=== PATIENT | female | born 1990 | race Caucasian/White ===

== ENCOUNTER 2018-06-22 11:28 | Emergency (ER) | payer MEDICAID, OTHER ==
[2018-06-22 11:45] VITALS: BP 110/71
--- NOTE | 2018-06-22 12:41 | ED ---
Abdominal Pain/Female - HPI Summary HPI Summary: C/O RIGHT SIDE ABDOMINAL PAIN STARTING THIS AM ASSOCIATED WITH INC BM, NAUSEA, WEAKNESS. PAIN IS CRAMPY, WORSE WITH BM, INTERMITTENT, LASTS 1 MIN AND THEN RETURNS AFTER 5-10 MINS, RATED AT WORST 4/10. DENIES FEVER, DIARRHEA, VOMITING, URINE SX, VAGINAL SX. DENIES FOREIGN TRAVEL. SEXUALLY ACTIVE, ON DEPO-PROVERA. LMP 8/3. MED HX = NONE. ABDO/PEL SURGICAL HX IS NONE. - History of Current Complaint Chief Complaint: UCGI Stated Complaint: DIZZY,BODY ACHES,DIARRHEA Time Seen by Provider: 06/22/18 12:24 Hx Obtained From: Patient Hx Last Menstrual Period: 06/12/18 Onset/Duration: Sudden Onset Timing: Intermittent Episode Lasting Severity Initially: Mild Severity Currently: Mild Pain Intensity: 3 Pain Scale Used: 0-10 Numeric Location: Discrete At: RLQ, Suprapubic Radiates: No Character: Cramping Aggravating Factor(s): Other: Alleviating Factor(s): Nothing Associated Signs and Symptoms: Positive: Nausea Allergies/Adverse Reactions: Allergies Allergy/AdvReac Type Severity Reaction Status Date / Time morphine Allergy heaviness Verified 06/22/18 13:14 feeling in chest Home Medications: Home Medications Medroxyprogesterone Acetate [Depo-Provera Contraceptiv] 150 mg IM SEE INSTRUCTIONS 06/22/18 [History Confirmed 06/22/18] PMH/Surg Hx/FS Hx/Imm Hx Endocrine/Hematology History: Denies: Hx Anticoagulant Therapy, Hx Diabetes, Hx Thyroid Disease Cardiovascular History: Denies: Hx Congestive Heart Failure, Hx Deep Vein Thrombosis, Hx Hypertension , Hx Myocardial Infarction, Hx Pacemaker/ICD Respiratory History: Denies: Hx Asthma, Hx Chronic Obstructive Pulmonary Disease (COPD), Hx Lung Cancer, Hx Pneumonia, Hx Pulmonary Embolism GI History: Denies: Hx Gall Bladder Disease, Hx Gastrointestinal Bleed, Hx Ulcer, Hx Urosepsis History: Denies: Hx Kidney Stones, Hx Renal Disease Neurological History: Denies: Hx Dementia, Hx Migraine, Hx Seizures, Hx Transient Ischemic Attacks (TIA) Psychiatric History: Denies: Hx Anxiety, Hx Depression, Hx Schizophrenia, Hx Bipolar Disorder - Surgical History Surgery Procedure, Year, and Place: pinky laceration Infectious Disease History: No Infectious Disease History: Denies: Hx Clostridium Difficile, Hx Hepatitis, Hx Human Immunodeficiency Virus (HIV), History Other Infectious Disease, Traveled Outside the [place] in Last 30 Days - Family History Known Family History: Positive: None Negative: Cardiac Disease - Social History Alcohol Use: Daily Alcohol Amount: 1-2 glasses wine/day Substance Use Type: Reports: None Smoking Status (MU): Former Smoker Type: Cigarettes Amount Used/How Often: ONCE EVERY 2 WKS Length of Time of Smoking/Using Tobacco: 2 YRS Have You Smoked in the Last Year: Yes Review of Systems Constitutional: Negative Eyes: Negative ENT: Negative Cardiovascular: Negative Respiratory: Negative Positive: Abdominal Pain, Nausea Genitourinary: Negative Musculoskeletal: Negative Skin: Negative Positive: Weakness Psychological: Normal All Other Systems Reviewed And Are Negative: Yes Physical Exam - Summary Physical Exam Summary: + MURPHYS, + RLQ PAIN WITH PALPATION. NON TOXIC APPEARING. Triage Information Reviewed: Yes Vital Signs On Initial Exam: Initial Vitals Temp Pulse Resp BP Pulse Ox 97.6 F 79 15 110/71 99 06/22/18 11:39 06/22/18 11:39 06/22/18 11:39 06/22/18 11:39 06/22/18 11:39 Vital Signs Reviewed: Yes Appearance: Positive: Well-Appearing Skin: Positive: Warm Head/Face: Positive: Normal Head/Face Inspection Eyes: Positive: Normal Neck: Positive: Supple Respiratory/Lung Sounds: Positive: Clear to Auscultation Cardiovascular: Positive: Normal Abdomen Description: Positive: Other: Musculoskeletal: Positive: Normal Neurological: Positive: Normal Psychiatric: Positive: Normal AVPU Assessment: Alert - Jozef Coma Scale Best Eye Response: 4 - Spontaneous Best Motor Response: 6 - Obeys Commands Best Verbal Response: 5 - Oriented Coma Scale Total: 15 Diagnostics - Vital Signs Vital Signs Temp Pulse Resp BP Pulse Ox 06/22/18 11:39 97.6 F 79 15 110/71 99 - Laboratory Lab Statement: Any lab studies that have been ordered have been reviewed, and results considered in the medical decision making process. Abdominal Pain Fem Course/Dx - Course Course Of Treatment: C/O RIGHT SIDE ABDOMINAL PAIN STARTING THIS AM ASSOCIATED WITH INC BM, NAUSEA, WEAKNESS. PAIN IS CRAMPY, WORSE WITH BM, INTERMITTENT, LASTS 1 MIN AND THEN RETURNS AFTER 5-10 MINS, RATED AT WORST 4/10. DENIES FEVER , DIARRHEA, VOMITING, URINE SX, VAGINAL SX. DENIES FOREIGN TRAVEL. SEXUALLY ACTIVE, ON DEPO-PROVERA. LMP 8/3. MED HX = NONE. ABDO/PEL SURGICAL HX IS NONE. PHYSICAL EXAM: + MURPHYS, + RLQ PAIN WITH PALPATION. NON TOXIC APPEARING. pt advised to go to ED for better evaluation of ruq and rlq abdo pain. Pt agrees and will go by private vehicle. VS nml, non toxic appearing. - Diagnoses Provider Diagnoses: Abdominal pain Discharge - Sign-Out/Discharge Documenting (check all that apply): Patient Departure - Discharge Plan Condition: Stable Disposition: HOME-RECOMMEND TO ED Referrals: Jethro Pierre NP [Primary Care Provider] - Additional Instructions: Please go to ED now for better evaluation of your abdominal pain. - Billing Disposition and Condition Condition: STABLE Disposition: Home-Recommend to ED
== END 2018-06-22 12:45 | disposition home health service (06) ==
LOC: UCEAST 11:28
DX: R10.31 Right lower quadrant pain (principal); R11.0 Nausea; R53.1 Weakness; Z88.5 Allergy status to narcotic agent; Z87.891 Personal history of nicotine dependence
CPT/HCPCS: 99212; G0463

== ENCOUNTER 2018-06-22 13:08 | Emergency (ER) | payer MEDICAID, OTHER ==
[2018-06-22 15:09] LABS: ABS Basophils 0 10^3/ul (0-0.2); ABS Eosinophils 0 10^3/ul (0-0.6); ABS Lymphocytes 2.4 10^3/ul (1.0-4.8); ABS Monocytes 0.5 10^3/ul (0-0.8); ABS Neutrophils 3.8 10^3/ul (1.5-7.7); ABS Nucleated RBC 0 10^3/ul; Eosinophil % 0.4 % (0-6); Hematocrit 41 % (35-47); Hemoglobin 13.7 g/dl (12.0-16.0); Lymphocyte % 34.9 % (25-47); Mean Corpuscular HGB Conc 34 g/dl (31-36); Mean Corpuscular Hemoglobin 29 pg (27-31); Mean Corpuscular Volume 86 fL (80-97); Mean Platelet Volume 7.7 um3 (7.4-10.4); Nucleated Red Blood Cells % 0; Platelet Count 259 10^3/ul (150-450); Red Blood Count 4.74 10^6/ul (4.00-5.40); Red Cell Distribution Width 13 % (10.5-15); White Blood Count 6.7 10^3/ul (3.5-10.8)
[2018-06-22 15:28] LABS: EGFR Non-African American 94.9 (>60)
--- NOTE | 2018-06-22 16:30 | ED ---
GI/ HPI - HPI Summary HPI Summary: 28-year-old female presents with abdominal pain since this morning. She states that it is located in her lower abdomen. Also seems to radiate to her right upper quadrant. She states she still hungry. She admits to nausea. No vomiting. No pain with urination. No vaginal discharge. No flank pain. No fevers. No chest pain or shortness breath. Never had this pain before. No previous belly surgeries. She admits to constipation. States she had 4 bowel movements today and that she had some cramping with bowel movements and her pain seemed to get better after the BM. Never had this pain before. - History of Current Complaint Chief Complaint: EDAbdPain Time Seen by Provider: 06/22/18 15:46 Stated Complaint: ABD PAIN Hx Last Menstrual Period: 06/12/18 Pain Intensity: 2 - Allergy/Home Medications Allergies/Adverse Reactions: Allergies Allergy/AdvReac Type Severity Reaction Status Date / Time morphine Allergy heaviness Verified 06/22/18 13:14 feeling in chest PMH/Surg Hx/FS Hx/Imm Hx Endocrine/Hematology History: Denies: Hx Anticoagulant Therapy, Hx Diabetes, Hx Thyroid Disease Cardiovascular History: Denies: Hx Congestive Heart Failure, Hx Deep Vein Thrombosis, Hx Hypertension , Hx Myocardial Infarction, Hx Pacemaker/ICD Respiratory History: Denies: Hx Asthma, Hx Chronic Obstructive Pulmonary Disease (COPD), Hx Lung Cancer, Hx Pneumonia, Hx Pulmonary Embolism GI History: Denies: Hx Gall Bladder Disease, Hx Gastrointestinal Bleed, Hx Ulcer, Hx Urosepsis History: Denies: Hx Kidney Stones, Hx Renal Disease Neurological History: Denies: Hx Dementia, Hx Migraine, Hx Seizures, Hx Transient Ischemic Attacks (TIA) Psychiatric History: Denies: Hx Anxiety, Hx Depression, Hx Schizophrenia, Hx Bipolar Disorder - Surgical History Surgery Procedure, Year, and Place: pinky laceration Infectious Disease History: No Infectious Disease History: Denies: Hx Clostridium Difficile, Hx Hepatitis, Hx Human Immunodeficiency Virus (HIV), History Other Infectious Disease, Traveled Outside the [place] in Last 30 Days - Family History Known Family History: Positive: None Negative: Cardiac Disease - Social History Alcohol Use: Weekly Alcohol Amount: 1-2 glasses wine/day Substance Use Type: Reports: None Smoking Status (MU): Former Smoker Type: Cigarettes Amount Used/How Often: ONCE EVERY 2 WKS Length of Time of Smoking/Using Tobacco: 2 YRS Have You Smoked in the Last Year: Yes Review of Systems Negative: Fever Negative: Chest Pain Negative: Shortness Of Breath Positive: Abdominal Pain, Nausea. Negative: Vomiting, Diarrhea All Other Systems Reviewed And Are Negative: Yes Physical Exam Triage Information Reviewed: Yes Vital Signs On Initial Exam: Initial Vitals Temp Pulse Resp BP Pulse Ox 98.2 F 71 18 124/82 99 06/22/18 13:10 06/22/18 13:10 06/22/18 13:10 06/22/18 13:10 06/22/18 13:10 Vital Signs Reviewed: Yes Appearance: Positive: Well-Appearing Skin: Positive: Warm, Dry Head/Face: Positive: Normal Head/Face Inspection Eyes: Positive: Normal, Conjunctiva Clear ENT: Positive: Pharynx normal Respiratory/Lung Sounds: Positive: Clear to Auscultation, Breath Sounds Present Cardiovascular: Positive: Normal, RRR Abdomen Description: Positive: Other: - tenderness RUQ, RLQ, and LLQ, no rebound Bowel Sounds: Positive: Present Pelvic Exam: Positive: External Exam Normal, Speculum Exam Normal, Bimanual Exam Normal, No Cerv. Motion Tender Musculoskeletal: Positive: Normal Neurological: Positive: Normal Psychiatric: Positive: Normal Diagnostics - Vital Signs Vital Signs Temp Pulse Resp BP Pulse Ox 06/22/18 15:04 97.6 F 65 18 124/78 98 06/22/18 13:10 98.2 F 71 18 124/82 99 - Laboratory Lab Results: Lab Results 06/22/18 06/22/18 Range/Units 15:00 15:00 WBC 6.7 (3.5-10.8) 10^3/ul RBC 4.74 (4.00-5.40) 10^6/ul Hgb 13.7 (12.0-16.0) g/dl Hct 41 (35-47) % MCV 86 (80-97) fL MCH 29 (27-31) pg MCHC 34 (31-36) g/dl RDW 13 (10.5-15) % Plt Count 259 (150-450) 10^3/ul MPV 7.7 (7.4-10.4) um3 Neut % (Auto) 56.5 (38-83) % Lymph % (Auto) 34.9 (25-47) % Becker % (Auto) 7.5 H (0-7) % Eos % (Auto) 0.4 (0-6) % Baso % (Auto) 0.7 (0-2) % Absolute Neuts (auto) 3.8 (1.5-7.7) 10^3/ul Absolute Lymphs (auto) 2.4 (1.0-4.8) 10^3/ul Absolute Monos (auto) 0.5 (0-0.8) 10^3/ul Absolute Eos (auto) 0 (0-0.6) 10^3/ul Absolute Basos (auto) 0 (0-0.2) 10^3/ul Absolute Nucleated RBC 0 10^3/ul Nucleated RBC % 0 Sodium 139 (135-145) mmol/L Potassium 4.1 (3.5-5.0) mmol/L Chloride 107 (101-111) mmol/L Carbon Dioxide 26 (22-32) mmol/L Anion Gap 6 (2-11) mmol/L BUN 12 (6-24) mg/dL Creatinine 0.73 (0.51-0.95) mg/dL Est GFR ( Amer) 114.9 (>60) Est GFR (Non-Af Amer) 94.9 (>60) BUN/Creatinine Ratio 16.4 (8-20) Glucose 89 (70-100) mg/dL Calcium 9.4 (8.6-10.3) mg/dL Total Bilirubin 0.40 (0.2-1.0) mg/dL AST 19 (13-39) U/L ALT 14 (7-52) U/L Alkaline Phosphatase 42 (34-104) U/L C-Reactive Protein < 1.00 (<8.01) mg/L Total Protein 7.8 (6.4-8.9) g/dL Albumin 4.8 (3.2-5.2) g/dL Globulin 3.0 (2-4) g/dL Albumin/Globulin Ratio 1.6 (1-3) Lipase 57 (11.0-82.0) U/L Beta HCG, Quant < 0.60 mIU/mL Result Diagrams: 06/22/18 15:00 06/22/18 15:00 Lab Statement: Any lab studies that have been ordered have been reviewed, and results considered in the medical decision making process. - Ultrasound No standard instances Ultrasound Interpretation: No Acute Changes Ultrasound Interpretation Completed By: Radiologist JENNIFER Course/Dx - Course Course Of Treatment: 28-year-old female presents with abdominal pain since this morning. She states that it is located in her lower abdomen. Also seems to radiate to her right upper quadrant. She states she still hungry. She admits to nausea. No vomiting. No pain with urination. No vaginal discharge. No flank pain. No fevers. No chest pain or shortness breath. Never had this pain before. No previous belly surgeries. She admits to constipation. States she had 4 bowel movements today and that she had some cramping with bowel movements and her pain seemed to get better after the BM. Never had this pain before. on exam has tenderness RUQ, RLQ, and LLQ. no rebound. labs wbc normal. crp normal. gallbladder u/s normal. xray shows constipation. pelvic normal. will treat constipation with miralax. urine normal. patient understand and agrees with plan. - Diagnoses Differential Diagnoses - Female: Cholelithiasis, Constipation, Urinary Tract Infection Provider Diagnoses: Abdominal pain, Constipation Discharge - Sign-Out/Discharge Documenting (check all that apply): Patient Departure - Discharge Plan Condition: Good Disposition: HOME Prescriptions: Polyethylene Glycol 3350* [Miralax*] 17 gm PO DAILY #21 packet Patient Education Materials: Constipation (ED) Referrals: Jethro Pierre NP [Primary Care Provider] - Additional Instructions: take miralax daily Drink plenty of fluids and eat high fiber diet Take tyenlol every 6 hours for pain as needed Follow up with primary Return to ED if develop any new or worsening symptoms - Billing Disposition and Condition Condition: GOOD Disposition: Home
--- NOTE | 2018-06-22 16:32 | RAD ---
INDICATION: Right upper quadrant pain COMPARISON: None TECHNIQUE: Longitudinal and transverse scans of the right upper quadrant were obtained. Doppler interrogation of the hepatic and portal venous system was performed. FINDINGS: Liver: The liver is normal in size and echogenicity. There are no focal masses. The liver measures 14.4 cm in cephalocaudal dimension. Vessels: There is normal hepatic and portal venous flow. Bile ducts: There is no evidence of intrahepatic or extrahepatic ductal dilatation. The common duct measures 0.4 cm. Gallbladder: The sonographic appearance of the gallbladder is normal. There is no evidence of cholelithiasis, thickening of the gallbladder wall, or pericholecystic fluid. Pancreas: The visualized pancreas appears normal Right kidney: The right kidney is normal in size and echogenicity. There are no masses or calculi. There is no evidence of hydronephrosis. The right kidney measures 10.3 x 3.9 x 5.7 cm. IVC and aorta: The aorta and superior vena cava appear normal. Fluid: There is no ascites. Other: None. IMPRESSION: NORMAL STUDY.
--- NOTE | 2018-06-22 16:42 | RAD ---
INDICATION: Constipated COMPARISON: None TECHNIQUE: Erect and supine views of the abdomen are submitted. FINDINGS: Bones: There are no acute bony findings. Soft tissues: The soft tissues appear normal. The psoas margins are sharp. Bowel gas pattern: Normal there is moderate retained stool, however. Calcifications: There are no abnormal calcifications. Other: None IMPRESSION: MODERATE RETAINED STOOL.
[2018-06-22 17:05] LABS: Urine Appearance Cloudy; Urine Blood Negative (Negative); Urine Color Yellow; Urine Ketones Negative (Negative); Urine Protein Negative (Negative); Urine Specific Gravity 1.028 (1.010-1.030); Urine Urobilinogen Negative (Negative)
[2018-06-22 17:21] VITALS: BP 111/75
== END 2018-06-22 17:20 | disposition home or self-care (01) ==
LOC: ED 13:08
DX: K59.00 Constipation, unspecified (principal); R11.0 Nausea; Z87.891 Personal history of nicotine dependence; Z88.5 Allergy status to narcotic agent
CPT/HCPCS: 36415; 74019; 76705; 80053; 81003; 83690; 84702; 85025; 86140; 87480; 87491; 87510; 87591; 87661; 99282

== ENCOUNTER 2019-02-21 17:17 | Emergency (ER) | payer BC, MEDICAID, OTHER ==
[2019-02-21 17:50] VITALS: BP 139/93
--- NOTE | 2019-02-21 18:08 | UC ---
Respiratory Complaint HPI - HPI Summary HPI Summary: 28 yo female presents with sinus pain/pressure/congestion and dry cough for the last 3 days. 3 days ago had some nausea and body aches, but this resolved. Took some ibuprofen for her symptoms with good relief. Denies fever, sore throat, SOB , rash, abdominal pain. - History of Current Complaint Chief Complaint: UCRespiratory Stated Complaint: COLD SYM Hx Obtained From: Patient Hx Last Menstrual Period: [id number] Onset/Duration: Sudden Onset Severity Initially: Mild Severity Currently: Mild Pain Intensity: 3 Pain Scale Used: 0-10 Numeric - Allergies/Home Medications Allergies/Adverse Reactions: Allergies Allergy/AdvReac Type Severity Reaction Status Date / Time morphine Allergy heaviness Verified 02/21/19 17:50 feeling in chest Home Medications: Home Medications Ibuprofen TAB* [Motrin TAB* 600 MG] 600 mg PO Q6H PRN 02/21/19 [History Confirmed 02/21/19] Polyethylene Glycol 3350* [Miralax*] 17 gm PO DAILY PRN 02/21/19 [History] PMH/Surg Hx/FS Hx/Imm Hx Respiratory History: Asthma Other History Of: Negative For: HIV, Hepatitis B, Hepatitis C, Anticoagulant Therapy - Surgical History Surgical History: None Surgery Procedure, Year, and Place: pinky laceration - Family History Known Family History: Positive: None Negative: Cardiac Disease - Social History Occupation: Employed Full-time Lives: With Family Alcohol Use: Daily Alcohol Amount: 1-2 glasses wine/day Substance Use Type: None Smoking Status (MU): Former Smoker Type: Cigarettes Amount Used/How Often: ONCE EVERY 2 WKS Length of Time of Smoking/Using Tobacco: 2 YRS Have You Smoked in the Last Year: Yes When Did the Patient Quit Smoking/Using Tobacco: [id number] Review of Systems All Other Systems Reviewed And Are Negative: Yes Constitutional: Positive: Negative Skin: Positive: Negative Eyes: Positive: Negative ENT: Positive: Ear Ache, Nasal Discharge, Sinus Congestion Respiratory: Positive: Cough Cardiovascular: Positive: Negative Gastrointestinal: Positive: Negative Neurovascular: Positive: Negative Neurological: Positive: Negative Psychological: Positive: Negative Physical Exam - Summary Physical Exam Summary: GENERAL: NAD. WDWN. No pain distress. SKIN: No rashes, sores, lesions, or open wounds. HEENT: Head: AT/NC Eyes: EOM intact. Conjunctiva clear without inflammation or discharge. Ears: Hearing grossly normal. TMs intact, no bulging, erythema, or edema. Nose: Nasal mucosa pink and moist. NTTP maxillary and frontal sinus. Throat: Posterior oropharynx without exudates, erythema, or tonsillar enlargement. Uvula midline. NECK: Supple. Nontender. No lymphadenopathy. CHEST: Mild wheezing throughout. No r/r. No accessory muscle use. Breathing comfortably and in no distress. CV: RRR. Without m/r/g. Pulses intact. Cap refill <2seconds NEURO: Alert. PSYCH: Age appropriate behavior. Triage Information Reviewed: Yes Vital Signs: Initial Vital Signs Temp 97.8 F 02/21/19 17:45 Pulse 76 02/21/19 17:45 Resp 16 02/21/19 17:45 BP 139/93 02/21/19 17:45 Pulse Ox 100 02/21/19 17:45 Vital Signs Reviewed: Yes Respiratory Course/Dx - Course Course Of Treatment: Suspect asthma exacerbation. She has used an inhaler in the past, but not recently. Will rx for an albuterol inhaler and short course of prednisone. Advised to f/u if symptoms do not improve. - Differential Dx/Diagnosis Provider Diagnosis: Asthma exacerbation Discharge - Sign-Out/Discharge Documenting (check all that apply): Patient Departure All imaging exams completed and their final reports reviewed: No Studies - Discharge Plan Condition: Stable Disposition: HOME Prescriptions: Albuterol HFA INHALER* [Ventolin HFA Inhaler*] 1 - 2 puff INH Q6H PRN #1 mdi PRN Reason: Cough predniSONE TAB* [Deltasone 20 MG TAB*] 20 mg PO DAILY #5 tab Patient Education Materials: Acute Bronchitis (ED) Referrals: Jethro Pierre NP [Primary Care Provider] - Additional Instructions: If you develop a fever, shortness of breath, chest pain, new or worsening symptoms - please call your PCP or go to the ED. Your blood pressure was mildly elevated at todays visit. Please see your primary provider within 4 weeks for recheck and re-evaluation. - Billing Disposition and Condition Condition: STABLE Disposition: Home
== END 2019-02-21 18:25 | disposition home or self-care (01) ==
LOC: UCEAST 17:17
DX: J45.901 Unspecified asthma with (acute) exacerbation (principal); Z88.5 Allergy status to narcotic agent; Z87.891 Personal history of nicotine dependence
CPT/HCPCS: 99212; G0463

== ENCOUNTER 2019-07-19 09:17 | Emergency (ER) | payer SELFPAY ==
[2019-07-19 09:24] VITALS: BP 135/73
--- NOTE | 2019-07-19 09:46 | UC ---
Complaint Female HPI - HPI Summary HPI Summary: 29 y/o female presents to the urgent care c/o frequency and burning on urination for the past 4 days. Pt has been drinking water w/o any improvement. This morning she saw pinkish color when she wipe after urination associated w / mild Pt states Hx of UTI in the past. Pt denies fever, flank pain, abdominal pain, vaginal discharge, Hx of STD's, SOB, chest pain,abdominal pain, N/V/D., LMP:06/30/2019 w/ irregular menstrual cycles. - History Of Current Complaint Chief Complaint: UCGU Stated Complaint: BURNING URINATION Time Seen by Provider: 07/19/19 09:33 Hx Obtained From: Patient Hx Last Menstrual Period: 07/03/19 Onset/Duration: Gradual Onset, Lasting Days - 4 days, Still Present, Worse Since - this morning Timing: Lasting Days - 4 days Severity Initially: Mild Severity Currently: Mild Pain Intensity: 3 Pain Scale Used: 0-10 Numeric Character: Burning Aggravating Factor(s): Urination Associated Signs And Symptoms: Positive: Negative. Negative: Fever, Back Pain, Vaginal Discharge, Nausea, Genital Swelling, Genital Blisters Related Hx: Similar Episode/Dx as: - UTI - Risk Factors Ectopic Risk Factor: Negative - Allergies/Home Medications Allergies/Adverse Reactions: Allergies Allergy/AdvReac Type Severity Reaction Status Date / Time morphine Allergy heaviness Verified 07/19/19 09:25 feeling in chest Home Medications: Home Medications Acyclovir* [Zovirax 400 MG TAB*] 1 tab PO BID 07/19/19 [History Confirmed ] Ferrous Sulfate 300 mg PO DAILY 07/19/19 [History Confirmed 07/19/19] PMH/Surg Hx/FS Hx/Imm Hx Previously Healthy: Yes - Pt denies PMHX Other History Of: Negative For: HIV, Hepatitis B, Hepatitis C, Anticoagulant Therapy - Surgical History Surgical History: Yes Surgery Procedure, Year, and Place: pinky laceration - Family History Known Family History: Positive: Cardiac Disease, Hypertension - Social History Occupation: Employed Full-time Lives: With Family Alcohol Use: Daily Alcohol Amount: 1-2 glasses wine/day Substance Use Type: None Smoking Status (MU): Former Smoker Type: Cigarettes Amount Used/How Often: ONCE EVERY 2 WKS Length of Time of Smoking/Using Tobacco: 2 YRS Have You Smoked in the Last Year: Yes When Did the Patient Quit Smoking/Using Tobacco: [id number] Review of Systems All Other Systems Reviewed And Are Negative: Yes Constitutional: Positive: Negative Skin: Positive: Negative Eyes: Positive: Negative ENT: Positive: Negative Respiratory: Positive: Negative Cardiovascular: Positive: Negative Gastrointestinal: Positive: Negative Genitourinary: Positive: Dysuria, Frequency, Urgency, Other - pelvic pressure Motor: Positive: Negative Neurovascular: Positive: Negative Musculoskeletal: Positive: Negative Neurological: Positive: Negative Psychological: Positive: Negative Is Patient Immunocompromised?: No Physical Exam - Summary Physical Exam Summary: VITAL SIGNS: Reviewed. GENERAL: Patient is a well developed and nourished female who is sitting comfortable in the examining table. Patient is not in any acute respiratory distress. HEAD AND FACE: No signs of trauma. No ecchymosis, hematomas or skull depressions. No sinus tenderness. EYES: PERRLA, EOMI x 2, No injected conjunctiva, clear watery eyes, no nystagmus. No photophobia. EARS: Hearing grossly intact. Ear canals and tympanic membranes are within normal limits. MOUTH: pharynx with no erythema, no exudates,no palatal petechiae. no B/L tonsillar enlargement Uvula in midline. NECK: Supple, trachea is midline, no lymphadenopathy, no JVD, no carotid bruit, no c-spine tenderness, neck with full ROM. CHEST: Symmetric, no tenderness at palpation LUNGS: Clear to auscultation bilaterally. No wheezing or crackles. CVS: Regular rate and rhythm, S1 and S2 present, no murmurs or gallops appreciated. ABDOMEN: Soft, non-tender. No signs of distention. No rebound no guarding, and no masses palpated. Bowel sounds are normal. BACK:no scoliosis or lesions, non tender to palpation, No B/L CVA tenderness EXTREMITIES: FROM in all major joints, no edema, no cyanosis or clubbing. NEURO: Alert and oriented x 3. No acute neurological deficits. Speech is normal and follows commands. SKIN: Dry and warm Triage Information Reviewed: Yes Vital Signs: Initial Vital Signs Temp 97.8 F 07/19/19 09:22 Pulse 71 07/19/19 09:22 Resp 15 07/19/19 09:22 BP 135/73 07/19/19 09:22 Pulse Ox 100 07/19/19 09:22 Complaint Female Dx - Course Course Of Treatment: 29 y/o female presents to the urgent care c/o frequency and burning on urination for the past 4 days. Pt has been drinking water w/o any improvement. This morning she saw pinkish color when she wipe after urination associated w / mild Pt states Hx of UTI in the past. Pt denies fever, flank pain, abdominal pain, vaginal discharge, Hx of STD's, SOB, chest pain,abdominal pain, N/V/D., LMP:06/30/2019 w/ irregular menstrual cycles. Hx obtained. PE: WNL. UA and test ordered. UA results: Blood 2+, Leukoesterase 1+. test: negative. Pt Rx Keflex PO x 7 days. Pyridium 100mg PO TID x 2 days. Advised to increase fluid intake. Urine sent for culture if any abnormality Pt will be notified for further treatment. Pt advised If symptoms do not improve to return to the urgent care or f/u with PCP. Pt understood and agreed w/ plan of care. Left the clinic ambulating. - Differential Dx/Diagnosis Differential Diagnosis/HQI/PQRI: Cervicitis, Pelvic Inflammatory Disease, , Renal Colic, Sexually Transmitted Disease, Ureteral Stone, Urinary Tract Infection Provider Diagnosis: UTI (urinary tract infection) Discharge ED - Sign-Out/Discharge Documenting (check all that apply): Patient Departure - D/C home All imaging exams completed and their final reports reviewed: No Studies - Discharge Plan Condition: Stable Disposition: HOME Prescriptions: Cephalexin CAP* [Keflex CAP*] 500 mg PO TID #14 cap Phenazopyridine TAB* [Pyridium 100 mg TAB*] 100 mg PO TID #6 tab Patient Education Materials: Urinary Tract Infection in Women (ED) Referrals: Jethro Pierre, [employer] [Primary Care Provider] - 3 Days Additional Instructions: 1- Please take Keflex PO x 7 days. Pyridium 100 mg PO TID x 2 days to alleviate urinary symptoms. Increase increase fluid intake. drink cranberry juice. 2-Urine sent for culture if any abnormality, you will be notified for further treatment. 3-If symptoms do not improve please return to the urgent care or f/u with your PCP for further management. - Billing Disposition and Condition Condition: STABLE Disposition: Home - Attestation Statements Provider Attestation: Per institutional requirements, I have reviewed the chart, however, I was not consulted specifically or made aware of this patient by the midlevel provider. I did not personally evaluate, interact with , or disposition this patient.
== END 2019-07-19 10:18 | disposition home or self-care (01) ==
LOC: UCEAST 09:17
DX: N39.0 Urinary tract infection, site not specified (principal); Z88.5 Allergy status to narcotic agent
CPT/HCPCS: 81003; 84702; 87086; 99212; G0463

== ENCOUNTER 2019-10-08 07:46 | Emergency (ER) | payer SELFPAY ==
[2019-10-08 07:54] VITALS: BP 123/71
--- NOTE | 2019-10-08 08:02 | UC ---
Dental HPI - HPI Summary HPI Summary: She has had tooth bothering her for 2 weeks. In the last day it started to hurt more and she has some swelling of her cheek. - History of Current Complaint Chief Complaint: UCDentalProblem Stated Complaint: DENTAL Time Seen by Provider: 10/08/19 07:57 Hx Obtained From: Patient Hx Last Menstrual Period: Sep 10 Onset/Duration: Gradual Onset Severity: Moderate Pain Intensity: 4 - Allergies/Home Medications Allergies/Adverse Reactions: Allergies Allergy/AdvReac Type Severity Reaction Status Date / Time morphine Allergy heaviness Verified 10/08/19 07:55 feeling in chest Home Medications: Home Medications Acetaminophen [Tylenol] 2 tab PO ONCE PRN 10/08/19 [History Confirmed 10/08/19] Ibuprofen TAB* [Advil TAB*] 400 mg PO Q6H PRN 10/08/19 [History Confirmed ] PMH/Surg Hx/FS Hx/Imm Hx Previously Healthy: Yes Other History Of: Negative For: HIV, Hepatitis B, Hepatitis C, Anticoagulant Therapy - Surgical History Surgical History: Yes Surgery Procedure, Year, and Place: finger surgery - Family History Known Family History: Positive: None, Cardiac Disease, Hypertension - Social History Alcohol Use: Weekly Alcohol Amount: 2-3 per week Substance Use Type: None Smoking Status (MU): Former Smoker Type: Cigarettes Amount Used/How Often: ONCE EVERY 2 WKS Length of Time of Smoking/Using Tobacco: 2 YRS Have You Smoked in the Last Year: Yes When Did the Patient Quit Smoking/Using Tobacco: [id number] Review of Systems All Other Systems Reviewed And Are Negative: Yes Constitutional: Positive: Negative ENT: Positive: Dental Pain Physical Exam - Summary Physical Exam Summary: She is nontoxic in appearance with stable vital signs. Triage Information Reviewed: Yes Appearance: Well-Appearing Vital Signs: Initial Vital Signs Temp 98.1 F 10/08/19 07:51 Pulse 77 10/08/19 07:51 Resp 16 10/08/19 07:51 BP 123/71 10/08/19 07:51 Pulse Ox 98 10/08/19 07:51 ENT: Positive: Dental tenderness - She has a necrotic left mandibular premolar. There is no sign of cellulitis or abscess Dental Complaint Course/Dx - Course Course Of Treatment: I am going to treat her with penicillin and tramadol and she is already arranging follow-up with her dentist. - Differential Dx/Diagnosis Provider Diagnosis: Tooth ache Discharge ED - Sign-Out/Discharge Documenting (check all that apply): Patient Departure All imaging exams completed and their final reports reviewed: No Studies - Discharge Plan Condition: Stable Disposition: HOME Patient Education Materials: Toothache (ED) Referrals: Jethro Pierre NP [Primary Care Provider] - Additional Instructions: Please make an appointment with your dentist for definitive treatment - Billing Disposition and Condition Condition: STABLE Disposition: Home
== END 2019-10-08 08:12 | disposition home or self-care (01) ==
LOC: UCEAST 07:46
DX: K08.89 Other specified disorders of teeth and supporting structures (principal); Z88.5 Allergy status to narcotic agent; Z87.891 Personal history of nicotine dependence
CPT/HCPCS: 99212; G0463

== ENCOUNTER 2019-10-09 02:33 | Emergency (ER) | payer MEDICAID, OTHER ==
--- NOTE | 2019-10-09 03:02 | ED ---
Throat Pain/Nasal Congestion - HPI Summary HPI Summary: Patient is a 29 y/o F presenting to [facility] with chief complaint of left lower dental pain. She states that she has been dealing with dental pain for the past several days. Approximately two days ago, patient states that she began to experience pain with swallowing and difficulty chewing. She was evaluated at [facility] on 10/08/19 and was prescribed Penicillin and Tramadol. Patient has also been taking ibuprofen and Tylenol for pain. However, she has not experienced relief in Sx with these medications. She has follow up with her dentist next week and presents to ED for pain relief. Patient is agreeable with dental block. On triage, pain is rated 5/10. Home medications and allergies are reviewed. - History of Current Complaint Chief Complaint: EDDentalPain Time Seen by Provider: 10/09/19 02:50 Hx Obtained From: Patient Onset/Duration: Lasting Days, Still Present Severity: Moderate Associated Signs And Symptoms: Positive: Dysphagia Cough: None - Allergies/Home Medications Allergies/Adverse Reactions: Allergies Allergy/AdvReac Type Severity Reaction Status Date / Time morphine Allergy heaviness Verified 10/09/19 02:37 feeling in chest PMH/Surg Hx/FS Hx/Imm Hx Endocrine/Hematology History: Denies: Hx Anticoagulant Therapy, Hx Diabetes, Hx Thyroid Disease Cardiovascular History: Denies: Hx Congestive Heart Failure, Hx Deep Vein Thrombosis, Hx Hypertension , Hx Myocardial Infarction, Hx Pacemaker/ICD Respiratory History: Denies: Hx Asthma, Hx Chronic Obstructive Pulmonary Disease (COPD), Hx Lung Cancer, Hx Pneumonia, Hx Pulmonary Embolism GI History: Denies: Hx Gall Bladder Disease, Hx Gastrointestinal Bleed, Hx Ulcer, Hx Urosepsis History: Denies: Hx Kidney Stones, Hx Renal Disease Neurological History: Denies: Hx Dementia, Hx Migraine, Hx Seizures, Hx Transient Ischemic Attacks (TIA) Psychiatric History: Denies: Hx Anxiety, Hx Depression, Hx Schizophrenia, Hx Bipolar Disorder - Surgical History Surgery Procedure, Year, and Place: finger surgery Infectious Disease History: No Infectious Disease History: Denies: Hx Clostridium Difficile, Hx Hepatitis, Hx Human Immunodeficiency Virus (HIV), History Other Infectious Disease, Traveled Outside the [place] in Last 30 Days - Family History Known Family History: Positive: Cardiac Disease, Hypertension - Social History Alcohol Use: Weekly Alcohol Amount: 2-3 per week Substance Use Type: Reports: None Smoking Status (MU): Former Smoker Type: Cigarettes Amount Used/How Often: ONCE EVERY 2 WKS Length of Time of Smoking/Using Tobacco: 2 YRS Have You Smoked in the Last Year: Yes Review of Systems Negative: Fever - on vitals, temp is 98.3 F ENT: Other - positive - difficulty chewing and pain with swallowing Positive: Dental Pain All Other Systems Reviewed And Are Negative: Yes Physical Exam - Summary Physical Exam Summary: Appearance: Well-appearing, Well-nourished, lying in bed comfortably Skin: Warm, dry, no obvious rash Eyes: sclera anicteric, no conjunctival pallor ENT: Swelling about left side of mandible, fractured first molar at left lower jaw with no pointing; mucous membranes moist, pharynx appears normal Neck: Supple, nontender Respiratory: Clear to auscultation, no signs of respiratory distress Cardiovascular: Normal S1, S2. No murmurs. Normal distal pulses in tibial and radial bilaterally. Abdomen: Soft, nontender, normal active bowel sounds present Musculoskeletal: Normal, Strength/ROM Intact Neurological: A&Ox3, awake and alert, mentation is normal, speech is fluent and appropriate Psychiatric: affect is normal, does not appear anxious or depressed Triage Information Reviewed: Yes Vital Signs On Initial Exam: Initial Vitals Temp Pulse Resp BP Pulse Ox 98.3 F 74 16 147/103 97 10/09/19 02:35 10/09/19 02:35 10/09/19 02:35 10/09/19 02:35 10/09/19 02:35 Vital Signs Reviewed: Yes Procedures - Sedation Patient Received Moderate/Deep Sedation with Procedure: No Diagnostics - Vital Signs Vital Signs Temp Pulse Resp BP Pulse Ox 10/09/19 02:35 98.3 F 74 16 147/103 97 - Laboratory Lab Statement: Any lab studies that have been ordered have been reviewed, and results considered in the medical decision making process. EENT Course/Dx - Course Course Of Treatment: Patient is a 29 y/o F presenting to [facility] with chief complaint of left lower dental pain. She states that she has been dealing with dental pain for the past several days. Approximately two days ago, patient states that she began to experience pain with swallowing and difficulty chewing. She was evaluated at [facility] on 10/08/19 and was prescribed Penicillin and Tramadol. Patient has also been taking ibuprofen and Tylenol for pain. However, she has not experienced relief in Sx with these medications. She has follow up with her dentist next week and presents to ED for pain relief. On exam , there is swelling about left side of mandible, fractured first molar at left lower jaw with no pointing. Patient is agreeable with dental block. Bupivacaine was administered. Patient was discharged to home with prescription for clindamycin and dentist follow up. - Diagnoses Provider Diagnoses: Dental abscess Discharge ED - Sign-Out/Discharge Documenting (check all that apply): Patient Departure - discharge - Discharge Plan Condition: Good Disposition: HOME Prescriptions: Clindamycin Cap(NF) [Clindamycin Cap 300 mg Cap(NF)] 300 mg PO TID #30 cap Patient Education Materials: Dental Abscess (ED) Referrals: Jethro Pierre NP [Primary Care Provider] - Additional Instructions: Contact your dentist on Friday for a followup appointment. The pain should start to come down over the weekend as the antibiotics start to work. - Billing Disposition and Condition Condition: GOOD Disposition: Home - Attestation Statements Document Initiated by Emily: Yes Documenting Scribe: MARVIN CABRERA Provider For Whom Emily is Documenting (Include Credential): CARMEN LAMAR MD Scribe Attestation: MARVIN Castaneda, scribed for CARMEN LAMAR MD on 10/09/19 at 1907. Scribe Documentation Reviewed: Yes Provider Attestation: The documentation as recorded by the MARVIN prince accurately reflects the service I personally performed and the decisions made by , CARMEN LAMAR MD Status of Scribe Document: Viewed
[2019-10-09 03:13] VITALS: BP 0/0
== END 2019-10-09 03:12 | disposition home or self-care (01) ==
LOC: ED 02:33
DX: K04.7 Periapical abscess without sinus (principal); Z87.891 Personal history of nicotine dependence; Z88.5 Allergy status to narcotic agent
CPT/HCPCS: 99281